=== PATIENT | male | born 1970 | race Caucasian/White ===

== ENCOUNTER 2018-04-04 19:28 | Inpatient (IN) | payer OTHER ==
[2018-04-04 20:06] LABS: Mean Corpuscular HGB CONC 33.5 g/dL (32.0-36.0); Mean Corpuscular Hemoglobin 26.3 pg (27.0-31.0); Mean Corpuscular Volume 78.5 fl (80.0-94.0); Platelet Count 174 thou/uL (130-400); RBC Distribution Width 14.5 % (11.5-14.5); Red Blood Cell (RBC) Count 5.34 mill/uL (4.70-6.10); White Blood Cell (WBC) Count 13.8 thou/uL (4.8-10.8)
[2018-04-04 20:24] LABS: Band 6 % (5-11); Lymphocytes 2 % (21-51); MDiff Complete? YES; Monocytes 2 % (0-10); Neutrophil 90 % (42-75); PLT Morphology Comment Appears Adequate
[2018-04-04 20:24] LABS: Bilirubin Negative (Negative); Blood, Urine Moderate (Negative); Clarity CLEAR (Clear); Glucose, Urine (Dipstick) Negative (Negative); Leukocyte Trace (Negative); Nitrite Negative (Negative); Protein, Urine (Dipstick) 300 mg/dL (Neg-Trace); Specific Gravity, Urine 1.008 (1.002-1.036)
[2018-04-04 20:25] LABS: Digoxin Less than 0.15 ng/mL (0.8-2.0)
[2018-04-04 20:26] LABS: Bacteria/HPF None Seen HPF (None Seen); Hyaline Casts/LPF 0-3 HYALINE CAST LPF (0-3 Hyaline); Squamous Epithelial 0-3 HPF (0-3); WBC/HPF 0-3 HPF (0-3)
[2018-04-04 20:26] LABS: ALT (SGPT) 11 U/L (8-55); AST (SGOT) 11 U/L (5-34); Albumin 3.6 g/dL (3.5-5.0); Alkaline Phosphatase 103 U/L (40-150); Anion Gap 14 mmol/L (10-20); BUN (Urea Nitrogen) 17 mg/dL (8.9-20.6); Bilirubin, Total 1.8 mg/dL (0.2-1.2); CK (CPK) 145 U/L (30-200); Calc. Creatinine Clearance 0 mL/min (70-130); Calcium 8.2 mg/dL (7.8-10.44); Carbon Dioxide 21 mmol/L (22-29); Chloride 101 mmol/L (98-107); Estimated GFR-MDRD 80; Globulin 3.2 g/dL (2.4-3.5); Glucose 168 mg/dL (70-105); Potassium 4.2 mmol/L (3.5-5.1); Protein, Total 6.8 g/dL (6.0-8.3); Sodium 132 mmol/L (136-145)
[2018-04-04 20:31] LABS: CKMB 1.3 ng/mL (0-6.6)
[2018-04-04 20:34] LABS: Troponin I 0.323 ng/mL (< 0.028)
--- NOTE | 2018-04-04 20:45 | RAD ---
PORTABLE CHEST: 04/04/18 INDICATION: Chest pain. IMPRESSION: Limited exam. Portions of the left costophrenic angle are excluded. Portions of the right and left co stophrenic angles are excluded. The visualized aspects of the AICD appear within normal limits. The v isualized lungs are clear. No acute osseous abnormality. POS: [facility]
[2018-04-04] MEDS ORDERED: Acetaminophen 325 MG TAB ONE (20:55)
[2018-04-04] MEDS ORDERED: cefTRIAXone\\ROCEPHIN 2 GM VIAL ONE (20:55)
[2018-04-04] MEDS ORDERED: Metoprolol Tartrate 5 MG/5 ML VIAL ONE ×2 (21:15→22:25)
[2018-04-04 22:52] LABS: INR-International Normal Ratio 1.4; PTT 43.6 SEC (22.9-36.1); Prothrombin Time 17.7 SEC (12.0-14.7)
[2018-04-04] MEDS ORDERED: Esmolol 2,500 MG/250 ML 250 ML IVPB SCH (23:15)
[2018-04-04] MEDS ORDERED: Esmolol 100 MG/10 ML VIAL IVP SCH (23:15)
[2018-04-04] MEDS ORDERED: Enoxaparin Sodium 40 MG/0.4 ML SYRINGE ONE (23:23)
[2018-04-04] MEDS ORDERED: Enoxaparin Sodium 100 MG/ML SYRINGE ONE (23:23)
[2018-04-05] MEDS ORDERED: Acetaminophen 325 MG TAB ONE (00:16)
[2018-04-05] MEDS ORDERED: Piperacillin/Tazobactam 4.5 GM VIAL ONE (00:16)
[2018-04-05 00:35] LABS: Lactic Acid 1.9 mmol/L (0.5-2.2)
[2018-04-05 00:44] LABS: Troponin I 0.294 ng/mL (< 0.028)
[2018-04-05] MEDS ORDERED: Ondansetron HCl/PF 4 MG/2 ML Vial IVP PRN (01:33)
[2018-04-05] MEDS ORDERED: Ondansetron ODT 4 MG TAB SL PRN (01:33)
[2018-04-05] MEDS ORDERED: Acetaminophen 325 MG TAB PO PRN (01:33)
[2018-04-05] MEDS ORDERED: Nitroglycerin 0.4 MG TAB (25 Tab Bottle) SL PRN (03:30)
[2018-04-05] MEDS ORDERED: Bisacodyl 5 MG TAB PO PRN (03:30)
[2018-04-05] MEDS ORDERED: VANCOMYCIN IVPB PRN (03:40)
[2018-04-05 03:53] LABS: Troponin I 0.275 ng/mL (< 0.028)
[2018-04-05 05:23] LABS: Anion Gap 13 mmol/L (10-20); BUN (Urea Nitrogen) 17 mg/dL (8.9-20.6); Calc. Creatinine Clearance 208 mL/min (70-130); Calcium 8.1 mg/dL (7.8-10.44); Carbon Dioxide 19 mmol/L (22-29); Cardiac Risk 2.4 (Less than 4.5); Chloride 103 mmol/L (98-107); Cholesterol 56 mg/dl (< 200 Desired); Estimated GFR-MDRD Greater than 90; Glucose 183 mg/dL (70-105); HDL Cholesterol 23 mg/dL (>60 Neg Risk); LDL Cholesterol, Calculated 19 mg/dL; Potassium 3.7 mmol/L (3.5-5.1); Sodium 131 mmol/L (136-145); Triglycerides 68 mg/dL (Less than 150)
[2018-04-05 05:51] LABS: Band 29 % (5-11); Hemoglobin 13.3 g/dL (14.0-18.0); Lymphocytes 7 % (21-51); MDiff Complete? YES; Mean Corpuscular HGB CONC 32.7 g/dL (32.0-36.0); Mean Corpuscular Hemoglobin 25.9 pg (27.0-31.0); Mean Corpuscular Volume 79.1 fl (80.0-94.0); Mean Platelet Volume 10.7 fL (7.4-10.4); Monocytes 9 % (0-10); Neutrophil 54 % (42-75); Platelet Count 130 thou/uL (130-400); RBC Distribution Width 14.7 % (11.5-14.5); Red Blood Cell (RBC) Count 5.14 mill/uL (4.70-6.10)
--- NOTE | 2018-04-05 08:43 | ULT ---
PRELIMINARY REPORT/[facility]/EMERGENTY AFTER-HOURS PROCEDURE US Duplex Left Lower Extremity Arteries EXAM DATE/TIME: Exam ordered 04/05/2018 12:23 AM CLINICAL HISTORY: 48 years old, male; Signs and symptoms; Other: Lle cold TECHNIQUE: Real-time duplex ultrasound scan of the left lower extremity arteries integrating B-mode twodimension al vascular structure, Doppler spectral analysis and color flow Doppler imaging. COMPARISON: No relevant prior studies available. FINDINGS: Left common femoral artery: No acute findings. No occlusion or significant stenosis on color flow and spectral Doppler imaging. Normal waveform. Left superficial femoral artery: No acute findings. No occlusion or significant stenosis on color chaya w and spectral Doppler imaging. Normal waveform. Left popliteal artery: No acute findings. No occlusion or significant stenosis on color flow and spec tral Doppler imaging. Normal waveform. Left calf/foot arteries: No acute findings. No occlusion or significant stenosis on color flow and sp ectral Doppler imaging. Normal waveform. Soft tissues: Unremarkable. IMPRESSION: Normal left lower extremity duplex arterial ultrasound. Thank you for allowing us to participate in the care of your patient. Dictated and Authenticated by: Memo Jennings MD 04/05/2018 1:40 AM Central Time ([place] & [place]) FINAL REPORT LEFT LOWER EXTREMITY ARTERIAL UTLRASOUND: HISTORY: Cold left lower extremity. COMPARISON: None. TECHNIQUE: Molina scale, color flow, Doppler imaging, with spectral waveform analysis was performed of the left lo wer extremity arterial system. FINDINGS: There is triphasic flow in the common femoral artery, superficial femoral artery, profunda femoral ar chuck, popliteal artery, posterior tibial artery, anterior tibial artery, and dorsalis pedis artery. VELOCITIES: ARTERY Common femoral artery 65.1 cm/s Proximal SFA 74.1 cm/s Mid SFA 64.1 cm/s Distal SFA 54.1 cm/s Proximal TFA 53.4 cm/s Popliteal artery proximal 31.1 cm/s Popliteal artery distal 36.8 cm/s Proximal posterior tibial artery 42.4 cm/s Mid posterior tibial artery 58.9 cm/s Distal posterior tibial artery 49.4 cm/s Anterior tibial artery 33.2 cm/s Dorsalis pedis artery 14.9 cm/s IMPRESSION: This report is in agreement with the preliminary report by [facility]. No significant stenosis. POS: [facility]
[2018-04-05] MEDS ORDERED: Enoxaparin Sodium 100 MG/ML SYRINGE SC SCH (09:00)
[2018-04-05] MEDS ORDERED: Carvedilol 3.125 MG TAB PO SCH (09:00)
[2018-04-05] MEDS: Diltiazem 125 MG in Sodium Chloride 0.9% 100 ML IVPB SCH (09:10)
[2018-04-05] MEDS: Aspirin 81 mg Enteric Coated Tablet PO SCH (09:19)
[2018-04-05] MEDS: Amiodarone 200 MG TAB PO SCH ×3 (09:19→20:15)
[2018-04-05] MEDS: Docusate 100 MG CAP PO SCH ×2 (09:20→20:17)
[2018-04-05] MEDS: Enoxaparin Sodium 40 MG/0.4 ML SYRINGE SC SCH ×2 (09:20→20:16)
[2018-04-05] MEDS: Digoxin 0.125 MG TAB PO SCH (09:20)
[2018-04-05] MEDS: Lisinopril 20 MG TAB PO SCH (09:21)
[2018-04-05] MEDS: Furosemide 20 MG TAB PO SCH (09:21)
[2018-04-05] MEDS: Enoxaparin Sodium 100 MG/ML SYRINGE SC SCH ×2 (09:21→20:16)
[2018-04-05] MEDS: Metoprolol Tartrate 50 MG TAB PO SCH ×2 (09:22→20:15)
[2018-04-05] MEDS ORDERED: Metoprolol Tartrate 5 MG/5 ML VIAL IVP SCH ×2 (10:00→10:30)
--- NOTE | 2018-04-05 10:26 | CON ---
DATE OF CONSULTATION: 04/05/2018 REASON FOR CONSULTATION: Atrial arrhythmias, mostly atrial flutter with an uncontrolled ventricular response in a patient with a history of congestive heart failure. HISTORY OF PRESENT ILLNESS: Mr. Sheffield is a 48-year-old gentleman brought from the [facility] unit in [facility] for a sensation of rapid heart rate. Mr. Sheffield states he had a history of coronary disease with previous stent implantation about 10 years ago. Also had defibrillator implantation done, he thinks, about 10 years ago. He is incarcerated at the [facility] as outlined above. He states that he was brought to the hospital on this occa bjorn as he had rapid heart rate and also multiple defibrillator discharges. The patient has had some atrial fibrillation, but now is mostly atrial flutter with uncontrolled ventricular response. The patient indicates that he was shocked 7 times. He was given adenosine in the emergency room with no response. PAST MEDICAL HISTORY: 1. As mentioned, he says he had stent implantation, he thinks, about 10 years ago. 2. History of atrial fibrillation, paroxysmal, for the last 10 years. 3. Previous defibrillator implantation. 4. Diabetes. REVIEW OF SYSTEMS: Constitutional: No significant weight gain or loss. Vision: No changes. Heari ng: No changes. Pulmonary: No cough or wheezing. Gastrointestinal: No nausea, vomiting, diarrhea . Skin: No rashes. Neurologic: No unilateral weakness or numbness. Psychiatric: No unusual depr ession or anxiety. MEDICATIONS: In nursing home, 1. Aspirin 81 mg a day. 2. Atorvastatin 40 mg a day. 3. Coreg 3.125 mg twice a day. 4. Digoxin 0.125 mg a day. 5. Furosemide. 6. Lisinopril 40 mg a day. 7. Nortriptyline. 8. Insulin. 9. Xarelto 20 mg a day. 10. Metformin. PHYSICAL EXAMINATION: GENERAL: He is a 6 feet 2 inches tall, 320 pounds gentleman, extremely obese, BMI is 41. He is awak e and alert. VITAL SIGNS: His blood pressure 138/85, pulse is 130-150, mostly atrial flutter despite intravenous Cardizem. HEENT: Sclerae nonicteric. Mouth mucous membranes moist. NECK: Supple, no lymphadenopathy. LUNGS: Clear. CARDIAC: Distant, but he is tachycardic. I do not hear a murmur, rub, or gallop. ABDOMEN: Soft, nontender. EXTREMITIES: No clubbing or cyanosis. There is mild peripheral edema. SKIN: Warm and dry. PERTINENT LABORATORY: Troponin level was 0.275, compatible with demand ischemia. BNP 780. Potassiu m is 3.7 and sodium 131. ASSESSMENT: 1. Atrial dysrhythmia, mostly atrial flutter now, but also some atrial fibrillation, rate is not con trolled. 2. Previous defibrillator implantation. 3. Congestive heart failure, systolic, chronic. 4. History of coronary disease per patient. 5. Previous defibrillator implantation. 6. responding to intravenous diltiazem alone. PLAN: 1. Add beta blockers. 2. Start amiodarone. 3. Will need EP consultation for probable ablation of the flutter. 4. Change to Lovenox. 5. Interrogate defibrillator. 6. Echocardiogram once rate is controlled.
[2018-04-05] MEDS ORDERED: HumaLOG 300 UNITS/3 ML VIAL SC PRN (10:39)
[2018-04-05] MEDS ORDERED: Dextrose 50% Abboject 50 ML SYRINGE SLOW IVP PRN (10:39)
[2018-04-05] MEDS ORDERED: Dextrose 5% in Water 1,000 ML IV PRN (10:39)
[2018-04-05] MEDS: NPH, Human Insulin Isophane 300 UNIT/3 ML VIAL SC SCH ×2 (10:41→20:19)
[2018-04-05] MEDS: Famotidine/PF 20 mg/2ml Vial SLOW IVP SCH ×2 (10:46→20:14)
--- NOTE | 2018-04-05 15:32 | PDOC.EVN ---
Event Note - Event Note Event Note: pt seen and examined.chart ,labs reviewed cont Amiodarone,BID lovenox,,Metoprolol,as added by cardiology EP consult on Saturday cont Empiric ABx.pt reports fever for 2-3 weeks,follow Cx.no obviuos source cont ASA,digoxin,statin and lasix.I/Os strict ECHO pending
[2018-04-05] MEDS: HumaLOG 300 UNITS/3 ML VIAL SC PRN (16:48)
[2018-04-05] MEDS: Acetaminophen 325 MG TAB PO PRN (20:14)
[2018-04-05] MEDS: cefTRIAXone\\ROCEPHIN 1 GM in Sodium Chloride 0.9% 100 ML IVPB SCH (20:16)
[2018-04-05] MEDS: Nortriptyline HCl 25 MG CAP PO SCH (20:18)
[2018-04-05] MEDS: Divalproex Sodium 250 MG (DR) TAB PO SCH (20:18)
[2018-04-05] MEDS ORDERED: Atorvastatin Calcium 40 MG TAB PO SCH (21:00)
[2018-04-06] MEDS: Diltiazem 125 MG in Sodium Chloride 0.9% 100 ML IVPB SCH ×2 (00:34→21:32)
--- NOTE | 2018-04-06 01:26 | CON ---
DATE OF CONSULTATION: 04/05/2018 HISTORY OF PRESENT ILLNESS: Mateo Lucero is very pleasant gentleman. He is 48 years old. He has a history of atrial fibrillation/atrial flutter in the past. He says he was hospitalized at [facility] in the past, but only kept in the hospital for 3 days. He was brought in for palpitations. PAST MEDICAL HISTORY: 1. Remarkable for having defibrillator implanted. 2. History of coronary stenting in the past. 3. History of atrial fibrillation. 4. History of diabetes. 5. History of reported defibrillator discharge in the past. FAMILY HISTORY: Negative for lung disease in early age. SOCIAL HISTORY: He is nondrug user, nonsmoker, nondrinker (is in the [facility]). He is on the aspirin, atorvastatin, Coreg, digoxin, Lasix, lisinopril, Pamelor, insulin, Xarelto, metformin. REVIEW OF SYSTEMS: Ten-point review of system is otherwise negative. PHYSICAL EXAMINATION: GENERAL: He actually says he feels fine right now. VITAL SIGNS: Temperature is 99.1, heart rate is 93, respiratory rate 16, oximetry is 98 on room air, blood pressure 129/68. HEENT: Pupils are equal. Sclerae is anicteric. NECK: Supple. No lymphadenopathy. He is obese. LUNGS: Clear. HEART: Regular rhythm. ABDOMEN: Soft and nontender. EXTREMITIES: Without asymmetry. His feet are warm. NEUROLOGIC: Grossly nonfocal. IMPRESSION: 1. Atrial flutter. 2. History of defibrillator implantation. 3. History of systolic heart failure. Echocardiogram this admission shows an ejection fraction of 15% to 20%. 4. History of multiple defibrillator discharges in the past. Plan per Cardiology is medically stable at this point in time. He does not need noninvasive ventilatory support and has had no clinical congestive heart failure. A 70-minute consult greater than 50% of the time was spent in coordinating care. VIN
[2018-04-06 04:37] LABS: #Lymphocytes 1.3 thou/uL (1.20-3.40); #Monocytes 1.2 thou/uL (0.11-0.59); #Neutrophils 9.9 thou/uL (1.40-6.50); %Basophils 0.3 % (0.0-1.0); %Eosinophils 0.3 % (0.0-10.0); %Lymphocytes 10.7 % (21.0-51.0); %Monocytes 9.3 % (0.0-10.0); %Neutrophils 79.5 % (42.0-75.0); Mean Corpuscular HGB CONC 32.2 g/dL (32.0-36.0); Mean Corpuscular Hemoglobin 25.1 pg (27.0-31.0); Mean Platelet Volume 9.2 fL (7.4-10.4); Platelet Count 173 thou/uL (130-400); RBC Distribution Width 14.5 % (11.5-14.5); Red Blood Cell (RBC) Count 5.15 mill/uL (4.70-6.10); White Blood Cell (WBC) Count 12.5 thou/uL (4.8-10.8)
[2018-04-06 05:00] LABS: Anion Gap 10 mmol/L (10-20); BUN (Urea Nitrogen) 18 mg/dL (8.9-20.6); Calc. Creatinine Clearance 193 mL/min (70-130); Calcium 8.1 mg/dL (7.8-10.44); Carbon Dioxide 21 mmol/L (22-29); Chloride 104 mmol/L (98-107); Estimated GFR-MDRD 84; Glucose 227 mg/dL (70-105); Potassium 3.7 mmol/L (3.5-5.1); Sodium 131 mmol/L (136-145)
[2018-04-06] MEDS: HumaLOG 300 UNITS/3 ML VIAL SC PRN ×3 (05:42→17:49)
[2018-04-06] MEDS: Lisinopril 20 MG TAB PO SCH (09:06)
[2018-04-06] MEDS: Metoprolol Tartrate 50 MG TAB PO SCH ×2 (09:06→20:39)
[2018-04-06] MEDS: Furosemide 20 MG TAB PO SCH (09:06)
[2018-04-06] MEDS: Digoxin 0.125 MG TAB PO SCH (09:06)
[2018-04-06] MEDS: Docusate 100 MG CAP PO SCH ×2 (09:07→20:39)
[2018-04-06] MEDS: Aspirin 81 mg Enteric Coated Tablet PO SCH (09:07)
[2018-04-06] MEDS: Amiodarone 200 MG TAB PO SCH ×2 (09:07→16:00)
[2018-04-06] MEDS: Acetaminophen 325 MG TAB PO PRN ×2 (09:07→20:38)
[2018-04-06] MEDS: Enoxaparin Sodium 100 MG/ML SYRINGE SC SCH ×2 (09:08→20:41)
[2018-04-06] MEDS: Enoxaparin Sodium 40 MG/0.4 ML SYRINGE SC SCH ×2 (09:08→20:41)
[2018-04-06] MEDS: Famotidine/PF 20 mg/2ml Vial SLOW IVP SCH ×2 (09:10→20:40)
[2018-04-06] MEDS: NPH, Human Insulin Isophane 300 UNIT/3 ML VIAL SC SCH ×2 (09:11→20:46)
[2018-04-06] MEDS ORDERED: Furosemide 20 MG/2 ML VIAL SLOW IVP SCH (09:30)
--- NOTE | 2018-04-06 09:45 | PRG ---
DATE OF SERVICE: 04/06/2018 SUBJECTIVE: Mr. Sheffield states he feels horrible. He had 103 fever last night. The metal handcuffs are also extremely uncomfortable to him and make his hands numb. OBJECTIVE: VITAL SIGNS: On exam, his blood pressure is 133/76, pulse is improved at 110 beats per minute. No a trial fibrillation. LUNGS: Clear. CARDIAC: Tachycardic for rest, but improved. No murmur, rub, or gallop. ABDOMEN: Soft, nontender. EXTREMITIES: There is mild edema. ASSESSMENT: 1. Congestive heart failure, severe. Ejection fraction was estimated at 15%-20%, although the patie nt was tachycardic. Also, noted to be in atrial fibrillation. 2. Fever 103, on antibiotics. Blood cultures pending. Urine culture shows strep. PLAN: 1. Continue amiodarone. 2. Continue metoprolol. 3. Continue diltiazem. 4. Give him a single dose of Lasix. 5. EP study has been placed on hold for now. 6. He is on enoxaparin. 7. Intravenous antibiotics. 8. Continue to follow. COMMENT: The security guards indicate that they think it is safe from a security standpoint to piña e him from the metal handcuffs to wrist restraints and feet restraints with plastic. From a medical standpoint, this would improve this patient's comfort. The guards indicate they think this is safe f rom a security standpoint and it does seem reasonable to me as well.
[2018-04-06] MEDS: Vancomycin HCl 1.75 GM in Sodium Chloride 0.9% 500 ML IVPB SCH ×2 (11:54→21:27)
[2018-04-06] MEDS ORDERED: Potassium Chloride 20 MEQ TAB PO SCH (12:00)
--- NOTE | 2018-04-06 14:14 | PRG ---
DATE OF SERVICE: 04/06/2018 SUBJECTIVE: Mr. Mateo Lucero has no complaints. OBJECTIVE: VITAL SIGNS: He is afebrile, heart rate is 107, blood pressure 141/77, respiratory rate 24, oximetry is 92 on 2 liters. LUNGS: Clear. HEART: Regular rhythm. ABDOMEN: Soft. EXTREMITIES: Without asymmetry. IMPRESSION: 1. Severe cardiomyopathy. 2. Temperature of 103. 3. History of defibrillator. 4. History of atrial fibrillation. 5. Diabetes. PLAN: Continue current care. Continue empiric antimicrobial therapy. He had beta hemolytic strep g row out of his urine, but he has to blame his fever on this. He could have prostatitis as suppose. He probably needs a renal ultrasound to assess for calculus obstruction or findings suggestive of norma lonephritis. He appears to be medically stable at this time.
--- NOTE | 2018-04-06 18:51 | ULT ---
BILATERAL RENAL ULTRASOUND: Date: 04/06/18 INDICATION: Back pain and fever, rule out pyelonephritis. FINDINGS: The right kidney measures 10.4 x 5.4 x 4.6 cm. The left kidney measures 10.6 x 5.9 x 5,9 cm. Stable i ntensity of both kidneys appears symmetric. There are bilateral ureteral jets seen at the bladder. Pr e-void bladder volume was 274.7 mL. IMPRESSION: No focal renal lesion or hydronephrosis. POS: [facility]
[2018-04-06] MEDS ORDERED: Amiodarone 200 MG TAB PO SCH (19:45)
--- NOTE | 2018-04-06 19:48 | PRG ---
DATE OF SERVICE: 04/06/2018 SUBJECTIVE: The patient is seen and examined at the bedside. He is in handcuffs plastic in the uppe r extremities and metal on the lower extremities. He is complaining about some shortness of breath w hen he gets up and he goes to the bathroom. His appetite is fair and he had bowel movement. OBJECTIVE: VITAL SIGNS: Blood pressure is 138/80, pulse is 99, respiratory rate is 18, O2 saturation is 96%. H is maximal temperature was 103.1 yesterday at 20:00, at 12:00 noon today it was 100.0. HEENT: His head is atraumatic, normocephalic. He is quite obese. His pupils are responding to ligh t properly. Sclerae nonicteric. Oral mucosa is moist. NECK: Supple. LUNGS: Clear. HEART: S1, S2, irregularly irregular. No S3, no S4. ABDOMEN: Obese, somewhat distended, but not tender. EXTREMITIES: His right lower extremity, he has increased temperature of the skin and some redness holly ggestive of some cellulitis. At the left lower extremity, he has temperature which is significantly lower to the palm , it is even called an average. NEUROLOGIC: He is alert and oriented x4. There is not any sensory or motor deficit. Cranial nerves are intact. LABORATORY DATA: Showed white count of 12.5, hemoglobin 14.2, platelet count is 173, and hematocrit 40.2. Chemistry shows sodium of 131, potassium 3.7, chloride 104, CO2 of 21, BUN 18, creatinine 0.96 . Glycemia is ranging from 205-297. Vancomycin trough is 19. Microbiology showed beta-hemolytic St reptococcus in the urine. Two blood cultures are negative. Influenza type A and B direct EIA negati ve. IMPRESSION AND PLAN: 1. Congestive heart failure with severe diminish left ventricle ejection fraction at 15% to 20%. 2. Atrial fibrillation. The patient is on Cardizem and amiodarone p.o. 3. Fever up to 103, on Rocephin and vancomycin. Blood cultures are negative. Urine culture showed beta-hemolytic Streptococcus. We will obtain a renal ultrasound as recommended typist, Dr. Chuy raya, to rule out pyelonephritis. We continue both antibiotics at this point. 4. Left lower extremity temperature decreased, which is most likely secondary to some perfusion defe ct in the vascular bed. We will obtain a consultation with cardiovascular surgeon if it is okay with Dr. Loyd, his cleaning technician, on the case. 5. Diabetes mellitus, which is not controlled. We will increase the sliding scale to get glycemia u nder better control. Also, at this point, we are going to continue his aspirin 81 mg and statin tracy g with digoxin and full dose of Lovenox 100 mg twice a day and lisinopril along with metoprolol.
[2018-04-06] MEDS: cefTRIAXone\\ROCEPHIN 1 GM in Sodium Chloride 0.9% 100 ML IVPB SCH (20:39)
[2018-04-06] MEDS: Atorvastatin Calcium 20 MG TAB PO SCH (20:39)
[2018-04-06] MEDS: Divalproex Sodium 250 MG (DR) TAB PO SCH (20:40)
[2018-04-06] MEDS: Nortriptyline HCl 25 MG CAP PO SCH (20:40)
[2018-04-06] MEDS ORDERED: Atorvastatin Calcium 40 MG TAB PO SCH (21:00)
[2018-04-07] MEDS: Diltiazem 125 MG in Sodium Chloride 0.9% 100 ML IVPB SCH ×3 (01:21→16:32)
--- NOTE | 2018-04-07 02:19 | CON ---
DATE OF CONSULTATION: 04/06/2018 REQUESTING PHYSICIAN: Trung Baker M.D. REASON FOR CONSULTATION: Peripheral vascular disease. HISTORY OF PRESENT ILLNESS AND HOSPITAL COURSE: The patient is a 48-year-old diabetic man with what sounds like an ischemic and/or diabetic cardiomyopathy, who has a history of paroxysmal atrial fibril lation, coronary artery disease treated by PCI and an AICD that has been implanted. He began having palpitations and had multiple firings of his defibrillator and was brought here. He was found to be in atrial fibrillation with a rapid ventricular response, that is not converted with pharmacologic ma nipulation, although it has blocked down to rates in the 90s. Evidently, he has been told in the pas t and fairly recently that he needs an amputation on the left leg. He describes to me that his left foot is always cold and his right foot is always hot, although equivocates when I asked about burning and tingling. On examination of his feet, one can see a little bit of sloughed skin on the medial a spect of the right great toe and a smaller area that appears to be scabbing over on the dorsum of the left third toe. He is aware of those lesions, but say they do not hurt. PAST MEDICAL HISTORY: Significant for his coronary disease with cardiomyopathy, AICD implantation, d iabetes mellitus, paroxysmal atrial fibrillation. MEDICATIONS: Baby aspirin a day, Lipitor 40 mg a day, Coreg 3.125 mg b.i.d., digoxin 0.125 mg a day, lisinopril 40 mg a day, Lasix 20 mg a day, Novolin insulin 60 units subcu b.i.d., metformin 1000 mg b.i.d., Depakote 250 mg at bedtime, nortriptyline 25 mg at bedtime, and Xarelto 20 mg in the evening. ALLERGIES: He denies medical allergies. SOCIAL HISTORY: He was two pack a day smoker until he went to correction. REVIEW OF SYSTEMS: Negative for any TIA symptoms or claudication. PHYSICAL EXAMINATION: VITAL SIGNS: He is 6 feet 2 inches, weighs 323-3/4 pounds. No xanthelasma. NECK: No JVD, no carotid bruits. CHEST: Clear to auscultation. CARDIOVASCULAR: He has an irregularly irregular rate and rhythm without obvious murmur. He has a sc ar in the left upper chest and a palpable device that has been implanted. They are consistent with h is AICD implantation. ABDOMEN: Soft and nontender. EXTREMITIES: He has easily palpable radial, femoral, popliteal, and posterior tibial pulses. I am n ot able to palpate dorsalis pedis pulses. He has some chronic appearing edema in both lower extremit ies. He has superficially sloughed skin almost like an unroofed blister on medial aspect of his righ t great toe with so far viable appearing tissue underneath. He has more smaller darker area that sena avery a little bit older on the dorsum of his left third toe. He has some varicosities at the ankle, pa rticularly on the left. He has a classic venous stasis pigmentation changes involving most of the le ft lower leg. The right side is more ruborous in appearance, although it is same sort of distributio n. He has what appears to be atrophic skin changes with about a 2-1/2 second capillary refill in the toes on the right side, 1-1/2 or 2 seconds on the left. LABORATORY DATA: His white count was 13.8, hemoglobin 14.0, hematocrit 42.0, platelets 174,000. On his initial chemistries, he had normal electrolytes with the exception of a minimally low sodium at 1 32, glucose is 168, BUN 17, creatinine 1.0, bilirubin is 1.8, alkaline phosphatase 103, AST 11, ALT 1 1, protein 6.8, albumin 3.6. Troponin was 0.3 to 3 and follow up about 2 hours later was 0.294. His BNP was 780.9. Fasting lipids, triglycerides 68, cholesterol 56, LDL 19, HDL 23, TSH 1.2230. Follo w up chemistry showed a BUN of 18 and creatinine of 0.96. Sugars have mostly been in the 200s. His chest x-ray suggests some pulmonary edema and modest cardiomegaly. There is what appears represent a n AICD implanted via the left subclavian system. His EKG showed poor R-wave progression in leads V1 through V4 with atrial fibrillation rates of 130s. His echocardiogram showed LVEF of around 15% -20% . His renal ultrasound was normal. His left lower extremity arterial Doppler was normal by report. IMPRESSION AND RECOMMENDATIONS: His feet are certainly cool to the touch and there are changes in th e toes suggestive of atrophic skin changes of peripheral vascular disease, but he has palpable towel folder ior tibial pulses and at least on the left side, no ultrasonographic findings to suggest a significan t peripheral vascular disease down to the level of the ankle and midfoot. It is conceivable that the se lesions on his toes might not heal and may require amputation of some sort, but I think it is uriah ature to do that until they have had a chance to declare themselves and certainly his cardiac issues are far more present.
[2018-04-07 04:51] LABS: #Basophils 0.1 thou/uL (0.0-0.2); #Eosinphils 0.3 thou/uL (0.0-0.7); #Lymphocytes 1.4 thou/uL (1.20-3.40); #Monocytes 0.9 thou/uL (0.11-0.59); #Neutrophils 6.5 thou/uL (1.40-6.50); %Basophils 0.7 % (0.0-1.0); %Eosinophils 3.8 % (0.0-10.0); %Lymphocytes 15.1 % (21.0-51.0); %Monocytes 9.4 % (0.0-10.0); %Neutrophils 71.1 % (42.0-75.0); Mean Corpuscular HGB CONC 32.5 g/dL (32.0-36.0); Mean Corpuscular Hemoglobin 25.7 pg (27.0-31.0); Mean Platelet Volume 9.3 fL (7.4-10.4); Platelet Count 172 thou/uL (130-400); RBC Distribution Width 14.6 % (11.5-14.5); Red Blood Cell (RBC) Count 4.69 mill/uL (4.70-6.10); White Blood Cell (WBC) Count 9.1 thou/uL (4.8-10.8)
[2018-04-07 05:11] LABS: Anion Gap 11 mmol/L (10-20); BUN (Urea Nitrogen) 15 mg/dL (8.9-20.6); Calc. Creatinine Clearance 213 mL/min (70-130); Calcium 7.9 mg/dL (7.8-10.44); Carbon Dioxide 23 mmol/L (22-29); Chloride 105 mmol/L (98-107); Estimated GFR-MDRD Greater than 90; Glucose 161 mg/dL (70-105); Potassium 3.8 mmol/L (3.5-5.1); Sodium 135 mmol/L (136-145)
[2018-04-07 05:15] LABS: Vancomycin, Trough 22.3 ug/mL
[2018-04-07] MEDS: Vancomycin HCl 1.75 GM in Sodium Chloride 0.9% 500 ML IVPB SCH (05:23)
[2018-04-07] MEDS: Lisinopril 20 MG TAB PO SCH (09:23)
[2018-04-07] MEDS: Potassium Chloride 20 MEQ TAB PO SCH (09:23)
[2018-04-07] MEDS: Digoxin 0.125 MG TAB PO SCH (09:23)
[2018-04-07] MEDS: Aspirin 81 mg Enteric Coated Tablet PO SCH (09:23)
[2018-04-07] MEDS: Amiodarone 200 MG TAB PO SCH ×3 (09:24→22:02)
[2018-04-07] MEDS: Furosemide 20 MG/2 ML VIAL SLOW IVP SCH (09:24)
[2018-04-07] MEDS: Metoprolol Tartrate 50 MG TAB PO SCH (09:24)
[2018-04-07] MEDS: Docusate 100 MG CAP PO SCH ×2 (09:24→22:02)
[2018-04-07] MEDS: Famotidine/PF 20 mg/2ml Vial SLOW IVP SCH (09:24)
[2018-04-07] MEDS: Enoxaparin Sodium 100 MG/ML SYRINGE SC SCH ×2 (09:25→22:01)
[2018-04-07] MEDS: Enoxaparin Sodium 40 MG/0.4 ML SYRINGE SC SCH ×2 (09:25→22:01)
[2018-04-07] MEDS: NPH, Human Insulin Isophane 300 UNIT/3 ML VIAL SC SCH ×2 (10:05→22:05)
[2018-04-07] MEDS: HumaLOG 300 UNITS/3 ML VIAL SC PRN ×2 (11:16→16:13)
--- NOTE | 2018-04-07 12:54 | PRG ---
DATE OF SERVICE: 04/07/2018 Mr. Lucero has no new complaints. PHYSICAL EXAMINATION: VITAL SIGNS: He is afebrile, heart rate 80, respiratory rates in the 20s, oximetry is 91 on 2 liters , blood pressure 138/78. LUNGS: Lungs are clear. HEART: Regular rhythm. ABDOMEN: Abdomen is soft. LABORATORY DATA: White count is 9.1, hemoglobin 12.0, platelets 172,000. Sodium 135, potassium 3.8, chloride 105, bicarbonate 23, BUN 15, creatinine 0.8. Apparently, a consult was put in yesterday for peripheral vascular disease. My experience with the [place] [employer] is they only want acute care issues worked up in the hospital. For i ssues like chronic peripheral vascular disease need to be worked up at the [facility] in [place]. Cardiothoracic surgeons did not recommend any acute intervention at this time. IMPRESSION: 1. Severe cardiomyopathy. 2. Febrile illness this admission, now afebrile. 3. History of defibrillator. 4. History of atrial fibrillation. 5. History of diabetes. He had a urine culture that was positive. Blood cultures remain negative. Sensitivities are not back on the strep, but I suspect this will be a pansensitive beta hemolytic str ep. Vancomycin in my opinion can be discontinued. He is stable to move out of the Intermediate Care Unit in my opinion.
[2018-04-07] MEDS ORDERED: Vancomycin HCl 1.5 GM in Sodium Chloride 0.9% 250 ML 300 ML IVPB SCH (13:00)
--- NOTE | 2018-04-07 15:25 | PDOC.PN ---
- Subjective Encounter Start Date: 04/07/18 Encounter Start Time: 15:23 Patient seen and examined, states he feels ok, no new issues or complaints. Patient seen and examined in ICU, no family at bedside, police officers present throughout evaluation, all questions answered. - Objective Resuscitation Status: Resuscitation Status FULL:Full Resuscitation Vital Signs & Weight: Vital Signs (12 hours) Temp Pulse Pulse Pulse Resp BP BP 04/07/18 15:16 98.8 F 90 19 04/07/18 10:59 98.6 F 80 29 H 04/07/18 10:05 88 115 H 143/83 H 150/72 H 04/07/18 08:00 99.1 F 90 18 04/07/18 07:25 99.1 F 90 04/07/18 06:11 88 18 04/07/18 05:21 93 20 04/07/18 04:00 97.7 F 93 17 BP BP Pulse Ox Pulse Ox Pulse Ox 04/07/18 15:16 155/78 H 90 L 04/07/18 10:59 138/78 91 L 04/07/18 10:05 90 L 95 04/07/18 08:00 90 L 04/07/18 07:25 146/76 H 90 L 04/07/18 06:11 146/76 H 90 L 04/07/18 05:21 165/79 H 92 L 04/07/18 04:00 138/77 95 Weight Admit Weight 320 lb 2 oz Weight 322 lb 1 oz I&O: 04/06/18 04/07/18 04/08/18 06:59 06:59 06:59 Intake Total 4204 3744 600 Output Total 2505 2400 2100 Balance 1699 1344 -1500 Result Diagrams: 04/07/18 04:24 04/07/18 04:24 Additional Labs: Accuchecks 04/07/18 04/07/18 04/06/18 10:32 05:38 19:59 POC Glucose 244 H 130 H 234 H 04/06/18 16:59 POC Glucose 277 H Phys Exam - Physical Examination Constitutional: NAD obese HEENT: PERRLA, moist MMs, sclera anicteric Neck: no nodes, no JVD, supple Respiratory: no wheezing, no rales, no rhonchi Cardiovascular: no rub, irregular 2/6 SANNA Gastrointestinal: soft, non-tender, no distention, positive bowel sounds rotund Musculoskeletal: pulses present, edema present (1+ pitting edema B/L LE) Neurological: non-focal, normal sensation RLE 2-5th digits cold Psychiatric: normal affect, A&O x 3 Skin: no rash, normal turgor Dx/Plan (1) Atrial fibrillation Code(s): I48.91 - UNSPECIFIED ATRIAL FIBRILLATION Status: Acute (2) PVD (peripheral vascular disease) Code(s): I73.9 - PERIPHERAL VASCULAR DISEASE, UNSPECIFIED Status: Acute (3) Systolic and diastolic CHF, acute on chronic Code(s): I50.43 - ACUTE ON CHRONIC COMBINED SYSTOLIC AND DIASTOLIC HRT FAIL Status: Acute (4) Hypertension Code(s): I10 - ESSENTIAL (PRIMARY) HYPERTENSION Status: Acute (5) Urinary tract infection in male Code(s): N39.0 - URINARY TRACT INFECTION, SITE NOT SPECIFIED Status: Acute (6) Cellulitis Code(s): L03.90 - CELLULITIS, UNSPECIFIED Status: Acute - Plan * keep in ICU for now * cardio and critical care following * EP evaluation pending, may need ablation * vascular surgery also following for claudication and severe PVD * cellulitis noted on feet, cont w/ current abx regimen, WBC count improving, cultures pending * further management per subspecialists * case and plan d/w patient at length, he understands and agrees with this plan
[2018-04-07] MEDS ORDERED: Spironolactone 25 MG TAB PO SCH (16:00)
[2018-04-07] MEDS ORDERED: Potassium Chloride 20 MEQ TAB PO SCH (16:00)
[2018-04-07] MEDS ORDERED: Furosemide 20 MG/2 ML VIAL SLOW IVP SCH (16:00)
--- NOTE | 2018-04-07 16:07 | HP ---
CHIEF COMPLAINT: Shocks. HISTORY OF PRESENT ILLNESS: This is a 48-year-old male with a known history of cardiomyopathy with a n EF of 5%-10%, status post AICD placement, also with a known history of atrial fibrillation, who was brought in after his defibrillator shocked him approximately 7 times earlier this morning. It is cu rrently pending interrogation. In the Emergency Department, the patient was found to be in atrial fibrillation with RVR with a conco mitant elevated troponin of 0.323. It appears that the patient denied any episodes of chest pain in the Emergency Department or prior to having received shocks. The patient has been given dose of full strength Lovenox. He is typically anticoagulated with Xarelto at home. He has also been given Lopr essor 5 mg and has been started on esmolol drip for rate control. The patient also notes that he has had a fever that has been low grade and that his right lower extre mity feels warmer than his left, which is atypical. He states that both his lower extremities are ty pically "cold "like his left lower extremity. REVIEW OF SYSTEMS: As per HPI. Constitutional: The patient denies any recent significant weight lo ss or gain that he is aware of. Fevers just today in the Emergency Department, but no priors, no chi lls. HEENT: No new headaches or new vision changes. No new lightheadedness or dizziness. Cardiova scular: Shocks as described above, otherwise prior to today, no episodes of dyspnea with exertion, c hest pain or chest pressure. Respiratory: No shortness of breath, no cough, no congestion, recent u pper respiratory illness. Gastrointestinal: No nausea, vomiting, or abdominal pain. No diarrhea or constipation. Genitourinary: Denies any issues with dysuria or changes in his urinary frequency qu ality, quantity, or pattern. Musculoskeletal: Denies any new myalgias or arthralgias outside of his chest area. Remainder of the review of systems otherwise negative. PAST MEDICAL HISTORY: As per above, significant for, 1. Paroxysmal atrial fibrillation, for which the patient is on Xarelto for anticoagulation. 2. Obesity. 3. Coronary artery disease. PAST SURGICAL HISTORY: 1. Status post AICD implantation. 2. Type 2 diabetes. MEDICATIONS: Please see the EMR for full details. ALLERGIES: No known drug allergies. FAMILY HISTORY: The patient denies known any family history of coronary artery disease or congestive heart failure. SOCIAL HISTORY: The patient is a prisoner within the [facility] system. No active tobacco, alcohol or ill icit drug use. The patient has multiple tattoos, most recent tattoos obtained in the . PHYSICAL EXAMINATION: GENERAL: The patient is awake, alert, conversant, in no acute distress, lying in the hospital bed. HEENT: Normocephalic, atraumatic. Moist mucous membranes, Equal ocular motions are intact. Pupils equal and reactive. CARDIOVASCULAR: S1, S2. Pulses 2+ bilateral upper extremities. The patient does have 1+ bilateral lower extremity pitting pedal edema. He has got chronic vascular changes to bilateral lower extremi ties. He has more warmth in his right lower extremity compared to his left lower extremity, but puls es are palpable, bilateral 1+ lower extremity. ABDOMEN: Positive bowel sounds, soft, nontender to palpation. NEUROLOGIC: Unable to assess as the patient is currently in plastic zip cuffs at this point in time. LABORATORY DATA AND IMAGING: WBC 13.8, hemoglobin 14.0, hematocrit 42.0, platelets 174. Chemistry: Sodium 131, potassium 3.7, chloride 104, bicarbonate 21, BUN 18, creatinine 0.96, glucose 227. Calc ium 8.1. ASSESSMENT AND PLAN: 1. A 48-year-old male presenting after being shocked by his AICD several times earlier this morning. I do not want interrogate the patient's AICD. 2. Cardiomyopathy with an EF of 5%-10%. Repeat echocardiogram, we will consult Cardiology. 3. Atrial fibrillation with rapid ventricular response. The patient currently on Lovenox and esmolo l drip as well. Continue to closely monitor. The patient is currently being placed in the IMCU. 4. Elevated troponin, question of whether this represents Novel acute coronary syndrome versus deman d ischemia or a type 2 zhx-LP-ydhlqfino myocardial infarction . We will continue to trend troponins. Cardiology consult as discussed above. The patient has received aspirin. Continue the patient's h ome statin, beta cathi, and SOFÍA as tolerated. 5. Fever, systemic inflammatory response syndrome, question of infection, particularly of right low er extremity which has some erythema. The patient has received ceftriaxone and vancomycin for concer n for diabetic infection. Continue to closely monitor. 6. Coldness to the left lower extremity. Please see the discussion above. It is not completely natanael ar if it is typical for the patient to have these cool lower extremities compared to the warmth of hi s right lower extremity which the patient himself endorses as being more abnormal than the coolness o f the left. However, given that the patient does have extensive risk factors, we have completed Dupl ex arterial scan of the left lower extremity. Admit patient to the IMCU. Consult Critical Care for assistance in managing this critically ill zeenat ent. The patient is a FULL CODE. DIET: Cardiac. ACTIVITY: As tolerated. Thank you for asking me care of the patient.
[2018-04-07] MEDS: Carvedilol 25 MG TAB PO SCH (16:12)
--- NOTE | 2018-04-07 16:15 | PRG ---
DATE OF SERVICE: 04/07/2018 SUBJECTIVE: Mr. Sheffield is sitting up at the side of the bed. Heart rate is about 110, it is atrial fi brillation, not currently in atrial flutter. He says he does not feel much better. OBJECTIVE: VITAL SIGNS: Blood pressure is 150 systolic. LUNGS: Clear. CARDIAC: Distant but I do not hear a murmur, rub or gallop. ABDOMEN: Obese, nontender. EXTREMITIES: There is mild to moderate edema. ASSESSMENT: 1. Congestive heart failure, systolic, severe, acute on chronic, but very severely depressed ejectio n fraction. 2. Atrial fibrillation. 3. Atrial flutter. 4. Peripheral vascular disease. PLAN: 1. Increase amiodarone. 2. Reduce diltiazem. 3. Diuresis. 4. Add spironolactone. 5. Antibiotics. 6. When stable, proceed with atrial flutter ablation and cardioversion.
[2018-04-07] MEDS: cefTRIAXone\\ROCEPHIN 1 GM in Sodium Chloride 0.9% 100 ML IVPB SCH (22:00)
[2018-04-07] MEDS: Acetaminophen 325 MG TAB PO PRN (22:01)
[2018-04-07] MEDS: Atorvastatin Calcium 20 MG TAB PO SCH (22:02)
[2018-04-07] MEDS: Famotidine 20 MG TAB PO SCH (22:03)
[2018-04-07] MEDS: Nortriptyline HCl 25 MG CAP PO SCH (22:03)
[2018-04-07] MEDS: Divalproex Sodium 250 MG (DR) TAB PO SCH (22:04)
[2018-04-08] MEDS: Diltiazem 125 MG in Sodium Chloride 0.9% 100 ML IVPB SCH (04:21)
[2018-04-08 04:45] LABS: #Basophils 0.1 thou/uL (0.0-0.2); #Eosinphils 0.6 thou/uL (0.0-0.7); #Lymphocytes 1.4 thou/uL (1.20-3.40); #Monocytes 0.9 thou/uL (0.11-0.59); #Neutrophils 5.3 thou/uL (1.40-6.50); %Basophils 0.7 % (0.0-1.0); %Eosinophils 7.7 % (0.0-10.0); %Monocytes 10.5 % (0.0-10.0); %Neutrophils 64.1 % (42.0-75.0); Hemoglobin 12.6 g/dL (14.0-18.0); Mean Corpuscular HGB CONC 32.1 g/dL (32.0-36.0); Mean Corpuscular Hemoglobin 25.5 pg (27.0-31.0); Mean Corpuscular Volume 79.6 fl (80.0-94.0); Mean Platelet Volume 9.5 fL (7.4-10.4); Platelet Count 187 thou/uL (130-400); RBC Distribution Width 14.7 % (11.5-14.5); Red Blood Cell (RBC) Count 4.95 mill/uL (4.70-6.10); White Blood Cell (WBC) Count 8.2 thou/uL (4.8-10.8)
[2018-04-08 05:12] LABS: Anion Gap 10 mmol/L (10-20); BUN (Urea Nitrogen) 15 mg/dL (8.9-20.6); Calc. Creatinine Clearance 259 mL/min (70-130); Carbon Dioxide 21 mmol/L (22-29); Chloride 110 mmol/L (98-107); Estimated GFR-MDRD Greater than 90; Glucose 73 mg/dL (70-105); Potassium 3.6 mmol/L (3.5-5.1); Sodium 137 mmol/L (136-145)
[2018-04-08] MEDS: Docusate 100 MG CAP PO SCH ×2 (09:46→20:43)
[2018-04-08] MEDS: Lisinopril 20 MG TAB PO SCH (09:46)
[2018-04-08] MEDS: Potassium Chloride 20 MEQ TAB PO SCH (09:46)
[2018-04-08] MEDS: Carvedilol 25 MG TAB PO SCH ×2 (09:46→17:17)
[2018-04-08] MEDS: Famotidine 20 MG TAB PO SCH ×2 (09:46→20:43)
[2018-04-08] MEDS: Amiodarone 200 MG TAB PO SCH ×3 (09:47→20:43)
[2018-04-08] MEDS: Aspirin 81 mg Enteric Coated Tablet PO SCH (09:47)
[2018-04-08] MEDS: Digoxin 0.125 MG TAB PO SCH (09:47)
[2018-04-08] MEDS: Spironolactone 25 MG TAB PO SCH (09:47)
[2018-04-08] MEDS: Enoxaparin Sodium 100 MG/ML SYRINGE SC SCH ×2 (09:47→20:41)
[2018-04-08] MEDS: Furosemide 20 MG/2 ML VIAL SLOW IVP SCH (09:47)
[2018-04-08] MEDS: NPH, Human Insulin Isophane 300 UNIT/3 ML VIAL SC SCH (09:48)
[2018-04-08] MEDS: Enoxaparin Sodium 40 MG/0.4 ML SYRINGE SC SCH ×2 (09:48→20:42)
--- NOTE | 2018-04-08 12:55 | PDOC.PN ---
- Subjective Encounter Start Date: 04/08/18 Encounter Start Time: 12:53 Patient seen and examined, no new issues, patient feeling well. - Objective Resuscitation Status: Resuscitation Status FULL:Full Resuscitation Vital Signs & Weight: Vital Signs (12 hours) Temp Pulse Resp BP BP Pulse Ox 04/08/18 11:05 98.1 F 76 20 143/92 H 97 04/08/18 09:47 72 04/08/18 08:01 98.5 F 72 20 92 L 04/08/18 07:15 98.5 F 72 20 156/81 H 93 L 04/08/18 06:24 68 20 128/76 92 L 04/08/18 05:18 71 20 145/72 H 92 L 04/08/18 04:22 97.4 F L 66 20 134/89 93 L 04/08/18 03:20 67 115/73 04/08/18 02:22 68 18 133/71 92 L 04/08/18 01:25 68 18 117/77 93 L Weight Admit Weight 320 lb 2 oz Weight 320 lb 7 oz I&O: 04/07/18 04/08/18 04/09/18 06:59 06:59 06:59 Intake Total 3744 2187 Output Total 2400 3300 Balance 1344 -1113 Result Diagrams: 04/08/18 04:31 04/08/18 04:31 Additional Labs: Accuchecks 04/08/18 04/08/18 04/07/18 10:24 06:25 22:01 POC Glucose 129 H 70 226 H 04/07/18 15:17 POC Glucose 254 H Phys Exam - Physical Examination Constitutional: NAD obese HEENT: PERRLA, moist MMs, sclera anicteric, TM's clear Neck: no nodes, no JVD, supple, full ROM Respiratory: no wheezing, no rales, no rhonchi Cardiovascular: RRR, no significant murmur, no rub Gastrointestinal: soft, non-tender, no distention, positive bowel sounds Musculoskeletal: pulses present, edema present (B/L LE 1+ pitting edema) right lower extremities toes are cold Neurological: non-focal, normal sensation, moves all 4 limbs Psychiatric: normal affect, A&O x 3 Skin: normal turgor Deviation from normal: B/L LE cellulitis Dx/Plan (1) Atrial fibrillation Code(s): I48.91 - UNSPECIFIED ATRIAL FIBRILLATION Status: Acute (2) PVD (peripheral vascular disease) Code(s): I73.9 - PERIPHERAL VASCULAR DISEASE, UNSPECIFIED Status: Acute (3) Systolic and diastolic CHF, acute on chronic Code(s): I50.43 - ACUTE ON CHRONIC COMBINED SYSTOLIC AND DIASTOLIC HRT FAIL Status: Acute (4) Hypertension Code(s): I10 - ESSENTIAL (PRIMARY) HYPERTENSION Status: Acute (5) Urinary tract infection in male Code(s): N39.0 - URINARY TRACT INFECTION, SITE NOT SPECIFIED Status: Acute (6) Cellulitis Code(s): L03.90 - CELLULITIS, UNSPECIFIED Status: Acute - Plan * transfer to telemetry * EP consult * continue abx * cultures negative * DC plans in 24-48hrs if cultures remain negative and if ok with cardio/EP teams * case and plan d/w patient at length, he understands and agrees with this plan
[2018-04-08] MEDS ORDERED: HumaLOG 300 UNITS/3 ML VIAL SC PRN (12:58)
[2018-04-08] MEDS ORDERED: Dextrose 5% in Water 1,000 ML IV PRN (12:58)
[2018-04-08] MEDS ORDERED: Dextrose 50% Abboject 50 ML SYRINGE SLOW IVP PRN (12:58)
[2018-04-08] MEDS ORDERED: Insulin Detemir 100 UNITS/ML 25 UNITS in Admixture Fee 1 EACH SC SCH (13:00)
[2018-04-08] MEDS ORDERED: Insulin Glargine 25 UNITS in Pre-Filled Syringe SC SCH (13:30)
--- NOTE | 2018-04-08 13:35 | PDOC.CTH ---
<Brandi Gill - Last Filed: 04/08/18 13:33> Cardiology Progress Note - Subjective EP progress note: Patient seen and evaluated. No new cardiac concerns. - Objective Vital Signs Temp Pulse Resp BP BP Pulse Ox 04/08/18 11:05 98.1 F 76 20 143/92 H 97 04/08/18 09:47 72 04/08/18 08:01 98.5 F 72 20 92 L 04/08/18 07:15 98.5 F 72 20 156/81 H 93 L 04/08/18 06:24 68 20 128/76 92 L 04/08/18 05:18 71 20 145/72 H 92 L 04/08/18 04:22 97.4 F L 66 20 134/89 93 L 04/08/18 03:20 67 115/73 04/08/18 02:22 68 18 133/71 92 L Admit Weight 320 lb 2 oz Weight 320 lb 7 oz 04/07/18 04/08/18 04/09/18 06:59 06:59 06:59 Intake Total 3744 2187 Output Total 2400 3300 Balance 1344 -1113 - Physical Examination General/Neuro: alert & oriented x3, NAD Neck: no JVD present Lungs: unlabored respirations Abdomen: NT/ND, soft Extremities: + edema B (+1 BLE) - Labs Result Diagrams: 04/08/18 04:31 04/08/18 04:31 Troponin/CKMB CK-MB (CK-2) 1.3 ng/mL (0-6.6) 04/04/18 19:52 Troponin I 0.275 ng/mL (< 0.028) H 04/05/18 03:19 - Assessment/Plan 1. Afib/flutter with RVR- now rate controlled. Continue amiodarone loading with eventual taper for arrhythmia suppression and digoxin with coreg for rate control. 2. Stroke prophylaxis. On lovenox. Will need OAC (previously on Xarelto) once lovenox stopped. 3. ICD in situ <Jm Ghosh - Last Filed: 04/08/18 17:13> Cardiology Progress Note - Objective Vital Signs Temp Pulse Pulse Pulse Resp BP BP 04/08/18 15:49 99.0 F 64 20 04/08/18 11:05 98.1 F 76 20 04/08/18 10:02 78 81 195/91 H 160/84 H 04/08/18 09:47 72 04/08/18 08:01 98.5 F 72 20 04/08/18 07:15 98.5 F 72 20 04/08/18 06:24 68 20 04/08/18 05:18 71 20 BP BP Pulse Ox Pulse Ox Pulse Ox 04/08/18 15:49 119/76 98 04/08/18 11:05 143/92 H 97 04/08/18 10:02 94 L 96 04/08/18 09:47 04/08/18 08:01 92 L 04/08/18 07:15 156/81 H 93 L 04/08/18 06:24 128/76 92 L 04/08/18 05:18 145/72 H 92 L Admit Weight 320 lb 2 oz Weight 320 lb 7 oz 04/07/18 04/08/18 04/09/18 06:59 06:59 06:59 Intake Total 3744 2187 Output Total 2400 3300 Balance 1344 -1113 - Labs Result Diagrams: 04/08/18 04:31 04/08/18 04:31 Troponin/CKMB CK-MB (CK-2) 1.3 ng/mL (0-6.6) 04/04/18 19:52 Troponin I 0.275 ng/mL (< 0.028) H 04/05/18 03:19 Attending Addendum - Attending Addendum Date/Time: 04/08/18 [id number] I personally evaluated the patient and discussed the management with ms Gill. I agree with the History, Examination, Assessment and Plan documented above with any addition or exceptions noted below.
--- NOTE | 2018-04-08 16:16 | PRG ---
DATE OF SERVICE: 04/08/2018 SUBJECTIVE: He has no new complaints. OBJECTIVE: VITAL SIGNS: He is afebrile, heart rate is 76, respiratory rate is 20, oximetry is 97, blood pressur e has been elevated transiently, but last blood pressure is 143/92. LUNGS: Clear. HEART: Regular rhythm. ABDOMEN: Soft. EXTREMITIES: His right lower extremity looks more erythematous to me. I reviewed his urine culture and the quantitation of his urine culture is not enough to considering h im as having a true urinary tract infection. I would wonder if his right lower extremity is not the source of the fever yet or earlier and maybe this is methicillin-sensitive Staph or strep. IMPRESSION: He still has atrial fibrillation/atrial flutter with a controlled rate. He has a defibrillator in place. PLAN: I will this with the other physicians. I believe if he had methicillin-sensitive Staphylococc us aureus and is causing cellulitis, he would still be febrile.
[2018-04-08] MEDS: cefTRIAXone\\ROCEPHIN 1 GM in Sodium Chloride 0.9% 100 ML IVPB SCH (20:40)
[2018-04-08] MEDS: Insulin Glargine 25 UNITS in Pre-Filled Syringe SC SCH (20:41)
[2018-04-08] MEDS: Divalproex Sodium 250 MG (DR) TAB PO SCH (20:43)
[2018-04-08] MEDS: Atorvastatin Calcium 20 MG TAB PO SCH (20:43)
[2018-04-08] MEDS: Nortriptyline HCl 25 MG CAP PO SCH (20:43)
[2018-04-09 04:20] LABS: #Eosinphils 0.8 thou/uL (0.0-0.7); #Lymphocytes 1.5 thou/uL (1.20-3.40); #Monocytes 0.8 thou/uL (0.11-0.59); #Neutrophils 6.7 thou/uL (1.40-6.50); %Basophils 0.4 % (0.0-1.0); %Eosinophils 8.5 % (0.0-10.0); %Lymphocytes 15.5 % (21.0-51.0); %Monocytes 7.6 % (0.0-10.0); Hemoglobin 12.1 g/dL (14.0-18.0); Mean Corpuscular Hemoglobin 25.3 pg (27.0-31.0); Mean Corpuscular Volume 78.9 fl (80.0-94.0); Mean Platelet Volume 8.8 fL (7.4-10.4); Platelet Count 215 thou/uL (130-400); RBC Distribution Width 14.7 % (11.5-14.5); White Blood Cell (WBC) Count 9.9 thou/uL (4.8-10.8)
[2018-04-09 04:37] LABS: Anion Gap 7 mmol/L (10-20); BUN (Urea Nitrogen) 13 mg/dL (8.9-20.6); Calc. Creatinine Clearance 254 mL/min (70-130); Carbon Dioxide 24 mmol/L (22-29); Chloride 109 mmol/L (98-107); Estimated GFR-MDRD Greater than 90; Glucose 78 mg/dL (70-105); Potassium 3.9 mmol/L (3.5-5.1); Sodium 136 mmol/L (136-145)
--- NOTE | 2018-04-09 05:31 | CON ---
DATE OF CONSULTATION: 04/08/2018 ELECTROPHYSIOLOGY CONSULTATION REPORT REFERRING PHYSICIAN: Dr. Loyd. I am seeing Mr. 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 His problems are: 1. Rule out paroxysmal atrial fibrillation with intermittent rapid ventricular rates. 2. Chronic systolic congestive heart failure with ischemic cardiomyopathy. A. Prior history of stenting about 10 years ago and after myocardial infarction. B. 2D echo from 03/2018 shows LVEF of 15%-20%, moderate enlarged left atrium, mild MR and TR seen. 3. Ventricular arrhythmias. A. Status post single chamber ICD implant with a [employer] X-[employer] Incepta device, most recent generator is from 08/04/2014. 4. Peripheral vascular disease, likely small vessel disease. 5. History of diabetes and obesity. 6. Incarcerated state. ALLERGIES: None noted. MEDICATIONS AT HOME: Included aspirin, Lipitor, Coreg, digoxin, furosemide, lisinopril, nortriptyline, insulin, Xarelto and metformin. SUBJECTIVE: Mr. Lucero was brought here from his present rapid heartbeat. He also reports some defibrillator discharges. From then, he does not have chest pains, no fever, chills or cough. No stroke-like symptoms, no neurological deficits. No current PND or orthopnea. He does have significant lower extremity discomfort, some atrophic changes in the foot are noted, possibly due to peripheral vascular disease. REVIEW OF SYSTEMS: The rest of the 12-point review of system is otherwise unremarkable. PAST MEDICAL HISTORY: As above. Patient had a ischemic cardiomyopathy and ICD use. He also has history of intermittent atrial fibrillation last 10 years. SOCIAL HISTORY: The patient is incarcerated. Denies smoking, ETOH or drug abuse currently. FAMILY HISTORY: Noncontributory. OBJECTIVE: VITAL SIGNS: Blood pressure is 154/79, heart rate 90, respirations 20, temperature 98.4 degrees Fahrenheit. GENERAL: This is an alert, oriented, obese man, in no apparent distress, . NECK: Supple. Jugular veins slightly distended. CHEST: Coarse without crackles. CARDIAC: Heart sounds are regular to rate and rhythm, 1/6 holosystolic murmur is heard. Left precordial ICD insertion site is well healed. ABDOMEN: Benign. Bowel sounds positive. EXTREMITIES: Lower extremities without edema. There is some atrophic skin changes and redness noted the lower extremities. DATABASE: The EKGs reviewed. Initial EKG from 04/04/2018 reveals sinus rhythm with frequent PACs, narrow complex QRS at 110 millisecond has seen. Nonspecific T-wave changes. Subsequent EKG from 04/04/2018 reveals atrial fibrillation with rates of 133 beats per minute, some EKGs do reveal regularized rates during which flutter waves are also noted, but cannot rule out atrial tachycardia with 1:1 conduction as well. LABORATORY DATA: White count 8.2, hemoglobin 12.6, platelet count is 187. INR 1.4. Sodium 135, potassium 3.8, BUN is 15, creatinine 0.88. Interrogation device reveals single chamber ICD with battery longevity in the beginning of life. Lead parameters are adequate with sensing 12.0 millivolts, impedance 600 ohms and capture 0.7 with a 0.5 milliseconds, shock impedance 45 ohms. Heart rate seems to have currently increased since the beginning of February. More increased heart rates are seen within the ventricular lead. Interrogation events revealed a regular tachycardia with a sensing in the VT zone. The morphology still appears to be chronic atrial fibrillation, to rule out intermittently induced ventricular tachycardia, although atypical. Some of these episodes were spontaneously terminated, so required ICD shock and did not terminate completely. Some ATP episodes do not seem to be affecting the rhythm. This would suggest morphology similar to baseline sinus rhythm irregularity morphology and no affect with the antitachycardia arrhythmia efforts as well as the shocks would suggest atrial fibrillation to be the primary cause for most of these. There is one episode where indeed ventricular tachycardia is detected with markedly different morphology though and requiring ATP which terminated arrhythmia. ASSESSMENT AND PLAN: Mr. Galindo is a 48-year-old man with history of CHF and ischemic cardiomyopathy, severely reduced LV function and current assessment who presented with rapid heart rates. He had received multiple ICD shocks. Interrogation of ICD does reveal atrial fibrillation with rapid rates which did get multiple atrial therapy even though his zones are pushed all the way to 200. He also had low ventricular tachycardia which has responded to ATP therapies as well. During his atrial fibrillation episodes his heart rate control is suboptimal. I think we will need further efforts to control his heart rate. Hence he also has ventricular arrhythmias, though I would consider using amiodarone for rate control and suppression of atrial fibrillation and possibly the ventriuclar tachycardia as well. Intermittently, he still is in sinus rhythm. This is likely the only rhythm medication could take to suppress both atrial fibrillation and ventricular arrhythmias. Simple ablation procedures likely would be not suffice in this gentleman. He is somewhat high risk for pulmonary venous isolation procedure with his concomitant poor LVEF lower extremity vascular status. Anticoagulation, continue Xarelto. ICD seems to be adequately functioning, continue monitoring. Hopefully, with the amiodarone, his AFib rates will not reach detection zones. At this point, I will not change the detection zones just yet. Routine heart failure therapy as per Dr. Loyd. We discussed the pros and cons of the amiodarone administration including need for periodic pulmonary monitoring, assess liver function and thyroid testing as well. We will follow with you. Thank you for the consult. VIN
[2018-04-09] MEDS: Potassium Chloride 20 MEQ TAB PO SCH (08:16)
[2018-04-09] MEDS: Aspirin 81 mg Enteric Coated Tablet PO SCH (08:17)
[2018-04-09] MEDS: Digoxin 0.125 MG TAB PO SCH (08:17)
[2018-04-09] MEDS: Amiodarone 200 MG TAB PO SCH ×3 (08:17→20:23)
[2018-04-09] MEDS: Docusate 100 MG CAP PO SCH ×2 (08:17→20:23)
[2018-04-09] MEDS: Famotidine 20 MG TAB PO SCH ×2 (08:17→20:24)
[2018-04-09] MEDS: Lisinopril 20 MG TAB PO SCH (08:18)
[2018-04-09] MEDS: Spironolactone 25 MG TAB PO SCH (08:18)
[2018-04-09] MEDS: Carvedilol 25 MG TAB PO SCH ×2 (08:18→15:49)
[2018-04-09] MEDS: Furosemide 20 MG/2 ML VIAL SLOW IVP SCH (08:18)
[2018-04-09] MEDS: Enoxaparin Sodium 100 MG/ML SYRINGE SC SCH ×2 (08:19→20:22)
[2018-04-09] MEDS: Enoxaparin Sodium 40 MG/0.4 ML SYRINGE SC SCH ×2 (08:19→20:21)
[2018-04-09] MEDS: Insulin Glargine 25 UNITS in Pre-Filled Syringe SC SCH ×2 (08:19→20:22)
--- NOTE | 2018-04-09 10:44 | PRG ---
DATE OF SERVICE: 04/09/2018 SUBJECTIVE: Mr. Sheffield converted to sinus rhythm and he feels better. OBJECTIVE: VITAL SIGNS: His blood pressure was high 157/92 and pulse 76. LUNGS: Clear. CARDIAC: Normal S1 and S2. ABDOMEN: Soft, nontender. EXTREMITIES: Still ibjhnijd-ba-aisdpi edema. ASSESSMENT: 1. Congestive heart failure, improving. 2. Back in sinus rhythm. 3. Previous defibrillator. PLAN: 1. Give extra diuretics today. 2. Probably can be sent back to his facility tomorrow.
--- NOTE | 2018-04-09 13:18 | PQF ---
RALPH GONZALEZGEOVANNI [id number] IMCU- B09 [id number] CLINICAL DOCUMENTATION IMPROVEMENT CLARIFICATION FORM: ICD-10 Updated PLEASE DO AN ADDENDUM TO THE PROGRESS NOTE WITH ANY DOCUMENTATION UPDATES OR ADDITIONS AND CARRY THROUGH TO DC SUMMARY. THANK YOU. DATE: 04-09-18 ATTN: DR. KELLEY Please exercise your independent, professional judgment in responding to the clarification form. Clinical indicators are provided on the bottom of this form for your review Please check appropriate box(es): [ ] Sepsis due to: [ ] SIRS due to non-infectious process (please specify etiology) [ ] with organ dysfunction [ ] without organ dysfunction [ ] Localized infection without sepsis [ ] Other diagnosis [ x ] Unable to determine In addition, please specify: Present on Admission (POA): [ ] Yes [ ] No [ x ] Unable to determine For continuity of documentation, please document condition throughout progress notes and discharge summary. Thank You. CLINICAL INDICATORS - SIGNS / SYMPTOMS / LABS ED DX: A-FIB W/ RVR; MILD CHF; NSTEMI VS DEMAND ISCHEMIA; SIRS - CONCERN FOR SEPSIS PULSE 112-163 TEMP 101.8 RESP 24-28 LABS: 5-11 WBC 13.8 H&P: FEVER, SIRS, QUESTION OF INFECTION, PARTICULARLY OF RLE WHICH HAS SOME ERYTHEMA. PN 5-13 SKYLER: FEVER 103 - ON ABX; BLD CULTURES PENDING; URINE CULTURE SHOW STREP 5-15 PN NORAH: URINE CULTURE IS NOT ENOUGH TO CONSIDERING HIM HAVING A TRUE UTI. I WOULD WONDER IF HIS RLE IS NOT THE SOURCE OF THE FEVER RISK FACTORS H&P: FEVER, SIRS, QUESTION OF INFECTION, PARTICULARLY OF RLE WHICH HAS SOME ERYTHEMA 5-15 PN ALLIE: UTI; CELLULITIS TREATMENTS: IMCU MONITORING 5-11 BLD CULTURES - NO GROWTH AT 48 HOURS 5-11 URINE CULTURE W/ BETA-HEMOLYTIC STREPTOCOCCUS MAR: ROCEPHIN 5-12 TO 5-16 VANCOMYCIN 5-12/ 5-13 / 14 THANK YOU, LISET (This form is maintained as a part of the permanent medical record) 2014 [employer]. All Rights Reserved Liset Sheehan RN, BS [email or web address] Cell [facility]
--- NOTE | 2018-04-09 13:29 | PQF ---
RALPH GONZALEZ BHARGAVJOSEGEOVANNI [id number] IMCU- B09 [id number] CLINICAL DOCUMENTATION IMPROVEMENT CLARIFICATION FORM: ICD-10 Updated PLEASE DO AN ADDENDUM TO THE PROGRESS NOTE WITH ANY DOCUMENTATION UPDATES OR ADDITIONS AND CARRY THROUGH TO DC SUMMARY. THANK YOU. DATE: 04-09-18 ATTN: DR. KELLEY Please exercise your independent, professional judgment in responding to the clarification form. Clinical indicators are provided on the bottom of this form for your review Please check appropriate box(s): AMI TYPE: [ ] Acute Coronary Syndrome [ ] NSTEMI [ ] AMI Type II [ x ] Demand Ischemia [ ] Other diagnosis [ ] Unable to determine In addition, please specify: Present on Admission (POA): [ x ] Yes [ ] No [ ] Unable to determine CLINICAL INDICATORS - SIGNS / SYMPTOMS / LABS ED DX: A-FIB W/ RVR; MILD CHF; NSTEMI VS DEMAND ISCHEMIA; SIRS - CONCERN FOR SEPSIS LABS: TROPONIN I 04-04 @ 1952 0.323 04-05 @ 0011 0.294 04-05 @ 0319 0.275 H&P: * AICD SHOCKED HIM APPROXIMATELY 7 TIMES EARLIER THIS MORNING * DENIED ANY EPISODES OF CHEST PAIN IN ED OR PRIOR TO SHOCKS * ELEVATED TROPONIN, QUESTION OF WHETHER THIS REPRESENTS NOVEL ACUTE CORONARY SYNDROME VS DEMAND ISCHEMIA OR A TYPE 2 NSTEMI SKYLER CONSULT: ATRIAL DYSRHYTHMIA, MOSTLY A-FLUTTER, BUT ALSO A-FIB TROPONIN LEVEL WAS 0.275, COMPATIBLE W/ DEMAND ISCHEMIA RISK FACTORS H&P: A-FLUTTER; S/P AICD SHOCKS FEVER, SIRS, QUESTION OF INFECTION, PARTICULARLY OF RLE WHICH HAS SOME ERYTHEMA 5-15 PN PATELDAAR: UTI; CELLULITIS TREATMENTS: IMCU MONITORING 5- BLD CULTURES - NO GROWTH AT 48 HOURS - URINE CULTURE W/ BETA-HEMOLYTIC STREPTOCOCCUS MAR: BETA MATHEW; AMIODARONE; LOVENOX ROCEPHIN - TO 16 VANCOMYCIN 04-05/ 04-06 / 04-07 INTERROGATE DEFIBRILLATOR; ECHO; EP CONSULT THANK YOU, LISET (This form is maintained as a part of the permanent medical record) 2014 [employer]. All Rights Reserved Liset Sheehan RN, BS [email or web address] [email or web address]
[2018-04-09] MEDS ORDERED: Furosemide 40 MG/4 ML VIAL SLOW IVP SCH (14:00)
[2018-04-09] MEDS ORDERED: Potassium Chloride 20 MEQ TAB PO SCH (14:00)
[2018-04-09 14:15] VITALS: BMI 40.7
--- NOTE | 2018-04-09 14:23 | PDOC.PN ---
- Subjective Encounter Start Date: 04/09/18 Encounter Start Time: 14:22 Patient seen and examined, no new issues or complaints, no family at bedside, officers present throughout examination, all questions answered. - Objective Resuscitation Status: Resuscitation Status FULL:Full Resuscitation Vital Signs & Weight: Vital Signs (12 hours) Temp Pulse Pulse Pulse Resp BP BP 04/09/18 11:58 98.8 F 73 16 04/09/18 09:47 65 74 150/82 H 04/09/18 08:18 157/92 H 04/09/18 08:17 76 04/09/18 08:13 97.4 F L 76 14 04/09/18 08:00 97.4 F L 76 18 04/09/18 04:00 98.7 F 76 16 BP BP Pulse Ox Pulse Ox Pulse Ox 04/09/18 11:58 159/57 H 100 04/09/18 09:47 150/84 H 100 97 04/09/18 08:18 04/09/18 08:17 04/09/18 08:13 144/90 H 96 04/09/18 08:00 96 04/09/18 04:00 168/91 H 95 Weight Admit Weight 320 lb 2 oz Weight 317 lb 4 oz I&O: 04/08/18 04/09/18 04/10/18 06:59 06:59 06:59 Intake Total 2187 2060 Output Total 3300 2400 350 Balance -1113 -340 -350 Result Diagrams: 04/09/18 04:02 04/09/18 04:02 Additional Labs: Accuchecks 04/09/18 04/09/18 04/08/18 10:25 05:46 20:22 POC Glucose 167 H 73 209 H 04/08/18 16:06 POC Glucose 184 H Phys Exam - Physical Examination Constitutional: NAD obese HEENT: PERRLA, moist MMs, sclera anicteric Neck: no nodes, no JVD, supple Respiratory: no wheezing, no rales, no rhonchi Cardiovascular: RRR, no significant murmur, no rub Gastrointestinal: soft, non-tender, no distention, positive bowel sounds Musculoskeletal: pulses present, edema present (B/L LE 1+ pitting edema) Neurological: non-focal, normal sensation Psychiatric: normal affect, A&O x 3 Skin: normal turgor Deviation from normal: LE cellulitis Dx/Plan (1) Atrial fibrillation Code(s): I48.91 - UNSPECIFIED ATRIAL FIBRILLATION Status: Acute (2) PVD (peripheral vascular disease) Code(s): I73.9 - PERIPHERAL VASCULAR DISEASE, UNSPECIFIED Status: Acute (3) Systolic and diastolic CHF, acute on chronic Code(s): I50.43 - ACUTE ON CHRONIC COMBINED SYSTOLIC AND DIASTOLIC HRT FAIL Status: Acute (4) Hypertension Code(s): I10 - ESSENTIAL (PRIMARY) HYPERTENSION Status: Acute (5) Urinary tract infection in male Code(s): N39.0 - URINARY TRACT INFECTION, SITE NOT SPECIFIED Status: Acute (6) Cellulitis Code(s): L03.90 - CELLULITIS, UNSPECIFIED Status: Acute - Plan * transfer to telemetry * continue current plan of care * obtain DC recommendations * DC plans in 24-48hrs once DC recs obtained from subspecialists * case and plan d/w patient at length, he understands and agrees with this plan
--- NOTE | 2018-04-09 14:59 | PRG ---
DATE OF SERVICE: 04/09/2018 Mr. Lucero remains afebrile. Vital signs has been stable. He is back in sinus rhythm reviewing the mon itor. He has been transferred out of the intermediate care to the telemetry unit. We will sign off. His hemoglobin remains stable at 12 grams. His renal function remains stable with a creatinine of 0.7.
[2018-04-09] MEDS: Divalproex Sodium 250 MG (DR) TAB PO SCH (20:23)
[2018-04-09] MEDS: Nortriptyline HCl 25 MG CAP PO SCH (20:23)
[2018-04-09] MEDS: cefTRIAXone\\ROCEPHIN 1 GM in Sodium Chloride 0.9% 100 ML IVPB SCH (20:24)
[2018-04-09] MEDS: Atorvastatin Calcium 20 MG TAB PO SCH (20:24)
[2018-04-10 05:24] LABS: #Basophils 0.1 thou/uL (0.0-0.2); #Lymphocytes 1.9 thou/uL (1.20-3.40); #Monocytes 0.8 thou/uL (0.11-0.59); #Neutrophils 6.3 thou/uL (1.40-6.50); %Basophils 0.7 % (0.0-1.0); %Lymphocytes 19.2 % (21.0-51.0); %Monocytes 8.2 % (0.0-10.0); Mean Corpuscular HGB CONC 31.7 g/dL (32.0-36.0); Mean Corpuscular Hemoglobin 25.4 pg (27.0-31.0); Mean Corpuscular Volume 79.9 fl (80.0-94.0); Platelet Count 243 thou/uL (130-400); RBC Distribution Width 14.9 % (11.5-14.5); Red Blood Cell (RBC) Count 5.51 mill/uL (4.70-6.10); White Blood Cell (WBC) Count 10.1 thou/uL (4.8-10.8)
[2018-04-10 05:41] LABS: Anion Gap 11 mmol/L (10-20); BUN (Urea Nitrogen) 11 mg/dL (8.9-20.6); Calc. Creatinine Clearance 230 mL/min (70-130); Calcium 8.4 mg/dL (7.8-10.44); Carbon Dioxide 25 mmol/L (22-29); Chloride 106 mmol/L (98-107); Estimated GFR-MDRD Greater than 90; Glucose 150 mg/dL (70-105); Potassium 4.5 mmol/L (3.5-5.1); Sodium 137 mmol/L (136-145)
[2018-04-10] MEDS ORDERED: Amiodarone 200 MG TAB PO SCH (09:00)
[2018-04-10] MEDS ORDERED: Furosemide 40 MG/4 ML VIAL SLOW IVP SCH (09:00)
[2018-04-10] MEDS: Famotidine 20 MG TAB PO SCH (09:08)
[2018-04-10] MEDS: Digoxin 0.125 MG TAB PO SCH (09:09)
[2018-04-10] MEDS: Potassium Chloride 20 MEQ TAB PO SCH (09:11)
[2018-04-10] MEDS: Carvedilol 25 MG TAB PO SCH (09:11)
[2018-04-10] MEDS: Aspirin 81 mg Enteric Coated Tablet PO SCH (09:11)
[2018-04-10] MEDS: Docusate 100 MG CAP PO SCH (09:12)
[2018-04-10] MEDS: Enoxaparin Sodium 100 MG/ML SYRINGE SC SCH (09:12)
[2018-04-10] MEDS: Enoxaparin Sodium 40 MG/0.4 ML SYRINGE SC SCH (09:13)
[2018-04-10] MEDS: Lisinopril 20 MG TAB PO SCH (09:19)
[2018-04-10] MEDS: Spironolactone 25 MG TAB PO SCH (09:20)
[2018-04-10] MEDS: Insulin Glargine 25 UNITS in Pre-Filled Syringe SC SCH (09:20)
--- NOTE | 2018-04-10 10:59 | PDOC.EVN ---
Event Note - Event Note Event Note: DC SUMMARY #[id number]
--- NOTE | 2018-04-10 11:46 | PRG ---
DATE OF SERVICE: 04/10/2018 SUBJECTIVE: Mr. Lucero feels much better. He has no shortness of breath. He is very comfortable. PHYSICAL EXAMINATION: VITAL SIGNS: His blood pressure 139/82, pulse 67 and regular. LUNGS: Clear. CARDIAC: Normal S1 and S2. EXTREMITIES: Only minimal edema now. PERTINENT LABORATORY: Potassium is 4.5. The patient is in sinus rhythm. ASSESSMENT: 1. Atrial flutter, resolved. 2. Atrial fibrillation, resolved. 3. Severe cardiomyopathy. 4. Previous single chamber defibrillator. 5. Severe systolic heart failure. PLAN: 1. He is on lisinopril 40 mg a day. 2. Furosemide changed to 40 mg orally once a day. 3. Amiodarone 400 mg a day for 2 weeks, then 200 mg a day. 4. Spironolactone 25 mg a day. 5. Should be able to stop potassium after today's dose and will be going back to the unit today from my standpoint.
[2018-04-10 13:20] VITALS: BP 117/85; TEMP 98.1
[2018-04-10] MEDS ORDERED: Rivaroxaban 10 MG TAB PO SCH (18:00)
--- NOTE | 2018-04-10 19:17 | DIS ---
DATE OF ADMISSION: 04/05/2018 DATE OF DISCHARGE: 04/10/2018 ADMITTING DIAGNOSES: Dysrhythmia, status post multiple shocks from his automatic implantable cardiov erter-defibrillator, history of paroxysmal atrial fibrillation, history of obesity, history of sood ry artery disease, history of type 2 diabetes mellitus, history of diastolic and systolic heart failu re. DISCHARGE DIAGNOSES: Dysrhythmia and automatic implantable cardioverter-defibrillator firing, automa tic implantable cardioverter-defibrillator was evaluated and medications adjusted, history of hyperte nsion, history of obesity, history of paroxysmal atrial fibrillation, history of coronary artery dise ase, history of type 2 diabetes mellitus, history of hyperlipidemia. HISTORY OF PRESENT ILLNESS: This is a 48-year-old male who was admitted with known history of cardio myopathy, EF of 5% to 10%, status post AICD placement, was admitted and the patient stated that the d efibrillator shocked him approximately 7 or 8 times. The patient was admitted to the ICU, followed nader choudhary closely by Internal Medicine as well as Pulmonary Critical Care, EP and cardiovascular teams. Th e patient was stable throughout the stay, did not have any further shocks from the AICD. The patient was also monitored closely for any dysrhythmias that occurred. AICD was evaluated. Shocks were not ed. Adjustments were made by EP and Cardiology was determined that the patient did not need any furt her intervention or was not a candidate for any further ablation, post-procedures per EP. The patien t's home medications were adjusted. Dosages were changed. Please see MAR for any further details on dose changes. The patient upon the time of discharge was stable. Denied any nausea, vomiting, diar eusebio, constipation, chest pain, fevers, or shortness of breath. Patient's CBC was within normal limi ts. The patient's metabolic panel was also within normal limits. Case and plan discussed with the p atient at length. He understood and agreed with this plan. DISPOSITION: Back to the assisted system. FOLLOWUP: Follow up with PCP within 1 week. DIET: Low fat, low calorie, high-fiber diet. ACTIVITY: As tolerated with assistance as appropriate. MEDICATIONS: Please see MAR. CONDITION: Stable. PROGNOSIS: Guarded. Again, case and plan discussed with the patient at length. He understands and agrees with this plan.
[2018-04-11] MEDS ORDERED: Furosemide 40 MG TAB PO SCH (07:30)
--- NOTE | 2018-04-11 08:58 | PRG ---
DATE OF SERVICE: 04/10/2018 REFERRING PHYSICIAN: Arnold Loyd M.D. SUBJECTIVE: Mr. Lucero is essentially doing better, transferred to the floor. He is feeling stronger (00:23). OBJECTIVE: VITAL SIGNS: Blood pressure is 110/85, heart rate 58, respiration rate is 18, temperature 98.1 degrees Fahrenheit. GENERAL: Alert and oriented, obese man in no apparent distress. NECK: Supple. Jugular veins difficult to visualize. CHEST: Coarse, no crackles. CARDIOVASCULAR: Heart sounds are regular to rate and rhythm. No murmur or gallop. ABDOMEN: Benign. Bowel sounds positive. EXTREMITIES: Lower extremity edema, clubbing or cyanosis. DATABASE: Telemetry strips reveals sinus rhythm. No (00:49) arrhythmia, mild QT prolongation. LABORATORY DATA: White cell count 10.1, hemoglobin 14, platelet count is 243. Sodium 137, potassium 4.5, BUN 11 and creatinine 0.8. ASSESSMENT AND PLAN: 1. Mr. Lucero is a 48-year-old man with history of cardiomyopathy, multiple ICD shocks most of them related to atrial fibrillation RVR with also some of them atrial fibrillation-induced ventricular tachycardia and adequate ICD discharges. He was started on amiodarone during hospitalization and he converted back to sinus rhythm, which he maintains now. Now feeling better. Our plan at this point, continue amiodarone therapy. 2. Would, digoxin at this point to avoid significant bradycardia. 3. ICD function otherwise adequate. 4. Continue Xarelto for anticoagulation. Elevated CHADS-VASc score. 5. Routine followup for the patient is recommended. Hence the amiodarone use which should be tapered down to 200 mg within the next month or so. MTDD
--- NOTE | 2018-04-12 14:29 | EKG ---
Test Reason : Blood Pressure : / mmHG Vent. Rate : 098 BPM Atrial Rate : 098 BPM P-R Int : 122 ms QRS Dur : 110 ms QT Int : 374 ms P-R-T Axes : 018 -15 072 degrees QTc Int : 477 ms Sinus rhythm with Premature atrial complexes Otherwise normal ECG No ST elevation/NH Confirmed by ALLYSON VIDAL M.D. ([id number]), art editor SERENA BENTON ([id number]) on 04/12/2018 2:29:07 PM Referred By: Confirmed By:ALLYSON VIDAL M.D.
--- NOTE | 2018-04-12 14:30 | EKG ---
Test Reason : Blood Pressure : / mmHG Vent. Rate : 133 BPM Atrial Rate : 147 BPM P-R Int : 000 ms QRS Dur : 110 ms QT Int : 338 ms P-R-T Axes : 000 -06 093 degrees QTc Int : 503 ms Atrial fibrillation with rapid ventricular response Abnormal QRS-T angle, consider primary T wave abnormality Abnormal ECG No ST elevation/IL Confirmed by MARCY Johnson, ALLYSON ([id number]), manuscript editor SERENA BENTON ([id number]) on 04/12/2018 2:30:32 PM Referred By: BRISA VIDAL Confirmed By:ALLYSON VIDAL M.D.
[2018-04-24] MEDS ORDERED: Amiodarone 200 MG TAB PO SCH (09:00)
== END 2018-04-10 16:05 | DRG 308 ==
LOC: ERS 19:28 → IMCU/EMU 19:42 → 2NO 04-09 13:29
PROVIDERS: ADMIT Internal Medicine; ATTEND Internal Medicine
DX: I48.0 Paroxysmal atrial fibrillation (principal); I50.23 Acute on chronic systolic (congestive) heart failure; I24.8 Other forms of acute ischemic heart disease; Z68.41 Body mass index [BMI] 40.0-44.9, adult; I11.0 Hypertensive heart disease with heart failure; I25.5 Ischemic cardiomyopathy; E11.9 Type 2 diabetes mellitus without complications; I25.10 Atherosclerotic heart disease of native coronary artery without angina pectoris; I48.92 Unspecified atrial flutter; E78.5 Hyperlipidemia, unspecified; I73.9 Peripheral vascular disease, unspecified; E66.9 Obesity, unspecified; I25.2 Old myocardial infarction; Z79.01 Long term (current) use of anticoagulants; Z79.82 Long term (current) use of aspirin; Z79.4 Long term (current) use of insulin; Z79.899 Other long term (current) drug therapy; Z95.810 Presence of automatic (implantable) cardiac defibrillator; Z95.5 Presence of coronary angioplasty implant and graft; Z87.891 Personal history of nicotine dependence
CPT/HCPCS: 36415; 36416; 71045; 76770; 80048; 80053; 80061; 80162; 80202; 81003; 81015; 82553; 83605; 83880; 84443; 84484; 85025; 85610; 85730; 87040; 87086; 87804; 93005; 93306; 93798; 93923; 96361; 96365; 96372; 96375; 96376; A4216; J0696; J1650; J1815; J1940; J2543; J3370; J7050; S0028